=== PATIENT | female | born 1995 | race Two or more races ===

== ENCOUNTER → 2024-01-10 07:56 | Outpatient (REF) | payer OTHER, SELFPAY | LOC: PNTC 07:56 | PROVIDERS: ATTENDING PHYSICIAN Obstetrics & Gynecology | DX: O99.280 Endocrine, nutritional and metabolic diseases complicating pregnancy, unspecified trimester (principal); O99.350 Diseases of the nervous system complicating pregnancy, unspecified trimester | CPT/HCPCS: 76805 ==

== ENCOUNTER 2024-06-04 02:25 | Inpatient (IN) | payer OTHER, SELFPAY ==
[2024-06-04 02:41] VITALS: BP 113/83; BMI 27.5
--- NOTE | 2024-06-04 02:50 | DOWNTIME ---
There was a [employer] Client Technical Professional Downtime on 06/04/2024 from 0100 to 06/04/2023 at 0235 . Downtime documentation of patient's care, including medication administrations, has been reconciled in the electronic record per guidelines. Refer to the
patient's paper chart under the miscellaneous tab to see printed paper medication records and downtime forms.
[2024-06-04] MEDS: LR 1000 IV (03:23)
[2024-06-04 04:15] LABS: % Basophils 0.3 % (0-2); % Lymphocytes 16.9 % (20.5-51.1); % Monocytes 7.2 % (1.7-9.3); % Neutrophils 73.6 % (42.2-75.2); Absolute Eosinophils 0.1 10^3/uL (0-0.7); Absolute Immature Granulocytes 0.1 10^3/uL (0-0.05); Absolute Lymphocytes 1.9 10^3/uL (1.2-3.4); Absolute Monocytes 0.8 10^3/uL (0.1-0.6); Absolute Neutrophils 8.5 10^3/uL (1.4-6.5); Hematocrit 38.1 % (37.0-47.0); Hemoglobin 13.6 g/dL (12.0-16.0); Mean Corp Hgb Conc. 35.7 g/dL (33.0-37.0); Mean Corpuscular Hgb 31.9 pg (27.0-31.0); Mean Corpuscular Volume 89.4 fL (81.0-99.0); Mean Platelet Volume 10.7 fL (7.4-10.4); Nucleated Red Blood Cells % 0 %; Platelet Count 178 10^3/uL (130-400); Red Blood Cell Count 4.26 10^6/uL (4.20-5.40); Red Cell Dist. Width 12.3 % (11.5-14.5); White Blood Cell Count 11.5 10^3/uL (4.8-10.8)
[2024-06-04] MEDS: XYLOCAINE-MPF 1% VIAL 30 ML INFIL (05:12)
[2024-06-04] MEDS: PITOCIN 30 UNITS/NSS 500 ML IV (05:12)
[2024-06-04] MEDS: MOTRIN 600 MG PO (07:21)
[2024-06-04] MEDS: TYLENOL 650 MG PO (18:21)
[2024-06-04] MEDS: FEOSOL PO (18:22)
[2024-06-04] MEDS: SENOKOT-S 1 TABLET PO (20:35)
[2024-06-04] MEDS: PRENATAL PLUS 1 TABLET PO (20:35)
[2024-06-04] MEDS: FEOSOL 325 MG PO (20:35)
[2024-06-05] MEDS: TYLENOL 650 MG PO ×3 (00:31→16:31)
[2024-06-05 06:39] LABS: Hematocrit 32.3 % (37.0-47.0); Hemoglobin 11.3 g/dL (12.0-16.0)
[2024-06-05] MEDS: FEOSOL PO ×3 (08:20→20:13)
[2024-06-05] MEDS: PRENATAL PLUS 1 TABLET PO (20:13)
[2024-06-05] MEDS: SENOKOT-S 1 TABLET PO (20:13)
[2024-06-06] MEDS: TYLENOL 650 MG PO ×2 (02:15→07:34)
[2024-06-06] MEDS: FEOSOL 325 MG PO (07:35)
[2024-06-06 13:48] LABS: Syphilis/T. pallidum Ab Reflex Negative (Negative)
== END 2024-06-06 15:13 | disposition home or self-care (01) | DRG 806 ==
LOC: LDRP 02:25
PROVIDERS: ADMITTING PHYSICIAN Student in an Organized Health Care Education/Training Program
PROC: 0KQM0ZZ Repair Perineum Muscle, Open Approach (ICD-10-PCS; 2024-06-04)
PROC: 4A1HXCZ Monitoring of Products of Conception, Cardiac Rate, External Approach (ICD-10-PCS; 2024-06-04)
PROC: 10E0XZZ Delivery of Products of Conception, External Approach (ICD-10-PCS; 2024-06-04)
DX: O42.02 Full-term premature rupture of membranes, onset of labor within 24 hours of rupture (principal); O99.354 Diseases of the nervous system complicating childbirth; Z37.0 Single live birth; G35 Multiple sclerosis; O99.284 Endocrine, nutritional and metabolic diseases complicating childbirth; E05.90 Thyrotoxicosis, unspecified without thyrotoxic crisis or storm; O69.2XX0 Labor and delivery complicated by other cord entanglement, with compression, not applicable or unspecified; Z3A.37 37 weeks gestation of pregnancy; O70.1 Second degree perineal laceration during delivery; O43.193 Other malformation of placenta, third trimester; Z86.19 Personal history of other infectious and parasitic diseases; Z83.49 Family history of other endocrine, nutritional and metabolic diseases
CPT/HCPCS: 85014; 85018; 85025; 86780; 86850; 86900; 86901

== ENCOUNTER 2024-11-04 10:48 | Emergency (ER) | payer OTHER, SELFPAY ==
[2024-11-04 10:51] VITALS: BP 117/81
--- NOTE | 2024-11-04 12:04 | ED.GENMED ---
History of Present Illness
General
Chief Complaint: Weakness
Source: patient
Time Seen by Provider: 11/04/24 11:42
History of Present Illness
History of Present Illness:
This patient is a 29-year-old female with a history of hyperthyroidism and MS, not currently taking medications given that she is breast-feeding her 6-month-old baby. She states for the last week or so she has had a variety of different symptoms
including lightheadedness, feeling like her head is a little heavy, episodes where her legs feel like they are giving out, and palpitation/dyspnea with certain activities. She denies chest pain, pain, neck pain, double vision, abdominal pain,
vomiting, fever, chills, numbness, tingling, focal weakness, or other complaints. She states her symptoms feel very consistent with prior episodes of an MS relapse associated with hyperthyroidism.
Past History
Past History
ED Past Medical History: Other (Multiple sclerosis, hypothyroidism)
ED Past Surgical History: Tonsilectomy
Social History
Tobacco: Non-smoker
Alcohol: None
Drug: None
Living: with family
Employment: Employed
Family History
Family History: Other (reviewed and non-contributory)
Phy Exam
Physical Exam
Physical Exam:
GENERAL: Alert , in no apparent distress
EYE: pupils equal and reactive
NECK: Supple, no significant adenopathy.
ENT: o/p clr, mmm.
CARDIAC: Regular rate and rhythm .
LUNGS: Clear breath sounds bilaterally, no acute respiratory distress, no wheezes/rales/rhonchi
ABDOMEN: Soft, without focal tenderness, no r/g, no cvat
NEUROLOGICAL: Alert and oriented, no focal neuro deficits, motor 5 out of 5, [id number] normal, cranial nerves II through XII intact, intact to light touch
SKIN: Warm and dry, skin intact.
MUSCULOSKELETAL: No edema, well perfused.
PSYCH: Normal and appropriate interaction.
Course
Orders/Labs/Results
Orders:
Orders
11/04/24 12:11
Electrocardiogram (*1) Urgent
Reason for Study: Palpitations
EKG- Treatment ONCE
11/04/24 12:12
Test Result ONCE
11/04/24 12:26
Complete Blood Count/No Diff Urgent
Comprehensive Metabolic Panel Urgent
HCG, Serum Qualitative Screen Urgent
TSH Reflex To Free T4 Urgent
Abnormal Lab Results
11/04/24
12:26
Hct 36.6 L %
(37.0-47.0)
Total Bilirubin 1.8 H mg/dl
(0.2-1.3)
Alkaline Phosphatase 31 L U/L
(38-126)
11/04/24 12:26
11/04/24 12:26
Vital Signs
Initial and Last Documented VS:
Initial Vital Signs
Temp Pulse Resp BP Pulse Ox
97.7 F 69 18 117/81 100
11/04/24 10:51 11/04/24 10:51 11/04/24 10:51 11/04/24 10:51 11/04/24 10:51
Last Documented Vital Signs
Temp Pulse Resp BP Pulse Ox
97.7 F 69 18 117/81 100
11/04/24 10:51 11/04/24 10:51 11/04/24 10:51 11/04/24 10:51 11/04/24 12:08
*Pulse Oximetry
SaO2: 100
Oxygen Mode of Delivery: Room air
Patient hypoxic: no
*Critical Care Note
Total Time (30-74mins, 75-104mins- exclusive of procedures): Not Applicable
Update Note
Update Note:
Patient presents to the Emergency Department with ___multiple
Number and Complexity of Problems Addressed at the Encounter
� Chronic conditions affecting care:
� Acute Exacerbation and/or Progression of Chronic Illness:
� Differential Diagnosis includes: But not limited to electrolyte disorder, arrhythmia, MS flare, thyroid imbalance, etc. etc.
Amount and/or Complexity of Data to be Reviewed and Analyzed
� I performed an independent evaluation of and my interpretation is:
EKG:read by me, nsr nl rate no ischemia
CT:
Xrays:
Laboratory Studies:generally unremkarable
Other:
� Review of other/old records reveals: Discharge summary from admission April 2022 reviewed, patient had very similar complaints/findings, was started on meds for hyperthyroidism as well as MS.
� Clinical information was obtained by an independent historian:
� Prescriptions/Medications Considered but not given:
� Further testing considered but not performed:
Risk of Complications and/or Morbidity or Mortality of Patient Management
� Social determinants of health affecting care:
� Discussion with other providers (PCP, Hospitalists, Consultants, etc):
� Escalation of care including admission/observation vs risk of discharge considered: Patient seen by neurology here, feel comfortable with recommending discharge for patient with follow-up with him and to resume MS medications.
He also recommends that patient increase caloric intake. Discussed with patient importance of follow-up and reasons to return to the ER. Patient has a normal neurological exam here including normal gait.
ED Attending Note
-
Portions of this chart may have been created with voice recognition software.� Occasional wrong word or��sound alike� substitutions may have occurred due to the inherent limitations of voice recognition software.
Discharge Plan
Departure
Patient Disposition: Home (Routine Discharge)
Date of Disposition: 11/04/24
Time of Disposition: 15:12
Patient with high blood pressure during this ER visit?: Yes
Condition: Good
Discharge Problem:
Weakness
Instructions: Generalized Weakness (DC), BLOOD PRESSURE
Prescriptions:
No Action
Vitamin
1 tab PO DAILY
iron
325 mg PO BID
ibuprofen 600 mg Tablet
600 mg PO Q6HPRN PRN (Reason: moderate pain/cramps) Qty: 90 0RF
Referrals:
NONE,* [Family Provider, Internal Medicine]
Activity Restrictions/Additional Instructions:
PLEASE TAKE YOUR MS MEDICATION DIRECTED BY THE NEUROLOGIST TODAY. IF YOU DEVELOP PERSISTENT DIZZINESS, FEVER, VOMITING, CHEST PAIN, SHORTNESS OF BREATH, CHANGE IN VISION, CHANGE IN SPEECH, OR OTHER WORRISOME SIGNS, PLEASE RETURN TO THE ER
IMMEDIATELY!
Interventions
Interventions:
*Risk Screen - Suicide Last Done: 11/04/24 10:51
*General Assessment Last Done: 11/04/24 10:51
*Neglect/Abuse Screening Last Done: 11/04/24 10:51
*Nursing Disposition Last Done: 11/04/24 16:34
ED- Cardiac Assessment Last Done: 11/04/24 11:45
ED- Neurological Assessment Last Done: 11/04/24 11:45
ED- Pulmonary Assessment Last Done: 11/04/24 11:45
Discharge Date and Time
Discharge Date/Time: 11/04/24 16:35
Print Language: ANDORRAN
[2024-11-04 12:34] LABS: Hematocrit 36.6 % (37.0-47.0); Hemoglobin 12.7 g/dL (12.0-16.0); Mean Corp Hgb Conc. 34.7 g/dL (33.0-37.0); Mean Corpuscular Volume 86.7 fL (81.0-99.0); Platelet Count 242 10^3/uL (130-400); Red Cell Dist. Width 11.8 % (11.5-14.5)
[2024-11-04 12:48] LABS: HCG, Serum Qualitative Screen Negative
[2024-11-04 12:54] LABS: ALT (SGPT) 13 U/L (0-35); AST (SGOT) 16 U/L (14-36); Albumin 4.7 g/dl (3.5-5.0); Alkaline Phosphatase 31 U/L (38-126); Blood Urea Nitrogen 16 mg/dl (7-17); Calcium 9.2 mg/dl (8.4-10.2); Carbon Dioxide 24 mmol/L (22-30); Chloride 107 mmol/L (98-107); Glucose 90 mg/dl (70-99); Potassium 4.4 mmol/L (3.5-5.1); Sodium 137 mmol/L (135-145); Total Protein 7.1 g/dl (6.3-8.2); eGFR > 60.00
--- NOTE | 2024-11-04 13:24 | CON.NEURO ---
Addendum entered and electronically signed by Yeison Abernathy MD 11/04/24 16:17:
Studies reviewed.
I have personally examined the patient. I reviewed and agree with the STEAM BLOCKER's Note.
My addenda:
Awake, alert, interactive. No acute distress.
Speech intact.
Follows 2-step requests w/o difficulty. No tremor.
Extra-ocular movements grossly intact.
Facial movements full and symmetric. Hearing intact to normal conversational volume.
Normal UE movements bilaterally.
Neck: full ROM.
Chest: no dyspnea
Heart: no JVD
Ext: (-) Clubbing, (-) Cyanosis, (-) Edema
IMPRESSIONS/RECOMMENDATIONS:
Abrupt onset of bilateral lower extremity weakness which is not evident on examination currently. Patient has a longstanding history of multiple sclerosis as well as optic neuritis. Currently there are no objective findings.
Patient was again advised to initiate glatiramer acetate as she continues breast-feeding for approximately another 12 months. She has been unwilling to do so previously
Patient was also advised to increase water intake and food intake as these have been an issue previously and may be associated with current symptoms
Patient was advised to undergo repeated outpatient MRI imaging to compare with prior imaging to ensure there is not enhancing lesions producing worsening symptoms
D/W patient
All questions answered.
Will continue to follow as outpatient.
Original Note:
Neuro Assessment/Plan
Assessment
29-year-old female with a history of hyperthyroidism and MS, not currently on disease modifying therapy presented to [facility] on 11/04/2024 with bilateral lower extremity weakness and blurry vision.
Brain MRI 04/26/2023: Moderate white matter disease in keeping with demyelination in the setting of multiple sclerosis. No significant interval change. No abnormal enhancement on postcontrast imaging. Mild diffuse volume loss.
Cervical MRI 04/26/2023:
1. There is slight increase in degenerative disk and joint disease with right central disk protrusion at C5-6 however no cord compression. Mild right foraminal narrowing.
2. Multiple foci of subtle increased T2 signal intensity throughout the cord consistent with the reported history of multiple sclerosis. Comparison of the 2 studies is difficult for any significant interval change.
3. There is no abnormal enhancement on postcontrast imaging within the cord to suggest an acute process or active demyelination.
Lumbar MRI 04/27/2023: Slight increase in degenerative disk and joint disease in the lumbar spine, with spur disk at L4-5 abutting the exiting L4 nerve roots in the far lateral exit foramen. No clear nerve root impingement.
The abnormal increased T2 signal intensity seen in the conus medullaris on prior exams is less well seen on today's exam. No abnormal enhancement on postcontrast imaging. In the past this has been felt to represent demyelinating disease in the conus
medullaris.
No new area of the abnormal signal intensity within the distal visualized thoracic cord.
No new area of abnormal enhancement on postcontrast imaging.
Incidental note is made of a trace amount of free fluid in the pelvis likely related to previous ovarian cyst rupture. There are small follicles in each ovary, incompletely imaged on this exam.
Thoracic MRI 04/30/2023: SEVERE MULTIFOCAL DEMYELINATING DISEASE (MULTIPLE SCLEROSIS) throughout the cervical and thoracic spinal cord without definitive interval change from 05/02/2021.
Plan
Impression: abrupt onset of lower extremity weakness, blurry vision and dizziness with a history of multiple sclerosis not on disease modifying therapy
-encourage food and fluid intake
-obtain brain and spine MRIs outpatient as planned
-consider starting Copaxone (glatiramer acetate)�while breast feeding
All questions encouraged and answered, plan of care discussed with Dr. Abernathy, hospitalist, nurse and patient
Consultation
Order
Date of Consultation: 11/04/24
Requesting Provider: hospitalist
Reason for Consult: lower extremity weakness
Subjective/Objective
Subjective Data
Date of Service: November 04, 2024
Was seen in the office on 10/30/2024 by myself and at that time no signs of MS exacerbation. Complaints of dizziness which is not new. Currently not on disease modifying therapy. Discussed starting Copaxone since she is breast feeding but would like
to hold off. Shortly after being seen outpatient, she started to have blurry vision and bilateral lower extremity weakness which prompted her to come to ER for evaluation. On exam muscle strength full throughout. Denies diplopia, denies issues with
chewing or swallowing. Denies issues with bowel/bladder. Denies numbness or tingling. Denies weakness in upper extremities.
Adapted from neurology note by Dr. Abernathy on April 2022:
'Due to progressive multiple sclerosis, the patient had replacement of monomethyl fumarate with the use of Ofatumumab. She received the fourth dose last week of Ofatumumab. Other than injection site reactions, the patient was not experiencing any
significant issues with this injectable medication for control over multiple sclerosis.
Fatigue began to worsen 14 days ago. Dizziness began to worsen with worsening balance with worsening walking without falling. 10 minute increments of dizziness twice an hour. Joint pain started 10 days ago in knees bilaterally only with walking,
equal bilaterally.
Tremors in bilateral hands returned two days ago.
Headaches increased two days ago.
Edited from my prior outpatient notes:
MRIs of brain: 02/2021, shows atrophy, without advancement of MS-type plaques from prior study 06/2020
MRIs of spine: Cervical spine 02/2021, diffuse lesions, without advancement of MS-type plaques from prior study 06/2020
Thoracic spine 06/2020, Lesions throughout thoracic spine except for T1, 3, 7, without advancement of MS-type plaques from prior study
Lumbar spine 04/2019, without advancement of MS-type plaques from prior study; 03/2021 continued conus medullaris lesion
[employer] Cognitive Testin% in 2015, 93% in 01/2017, 78% in 08/2020, 79% in 06/2021
Since last visit:
02/2022
Sugar and carbohydrates leads to fatigue
Thyroid abnl, hyperthyroid
Falling twice
Dizziness before falling
Considering changing medication for MS
Now engaged
08/2021
Worsening depression, meeting with rn social work
Urinary leakage weekly, unexpectedly, with some urgently
Improved cognition, still difficulty
No tremors, no constipation
Intensity: significant
Prior medication(s): Glatiramer acetate, beta-interferon 1-A (Avonex), fingolimod, dimethyl fumarate, Monomethyl fumarate (since 2020)
Prior meds for sxs: Tizanidine, Baclofen, Gabapentin, Tizanidine, NSAIDs, Levetiracetam, ASA (with Tecfidera), Modafinil (07/2020)
Side-effects with medications: Glatiramer acetate leading to tremors; loose stools; Tizanidine; ? tremors following fingolimod, dimethyl fumarate
Previous testing: [employer] cognitive testing, blood work, JAN
Previous treatment(s): PT
Prior evaluation: [facility], Neuro-Ophth at [facility], [facility] Neurology, Urology
Frequency: for eye pain, resolved; tremor is episodic --> daily for organizational issues
Duration: chronic (12/2014)
Duration of symptom: intermittent for tremor -->all day for hand numbness, resolved hand tremors
Etiology: unclear, presumed due to relapsing-remitting MS
MS type: Relapsing-Remitting
Associated symptom(s): fatigue, leg sensation loss on left lower extremity knee down; right leg loss of sensation (11/2020), concentration decline
Previous associated symptoms: visual change, blurred vision, bladder dysfxn, eye pain, tremor
Unchanged by: unclear to patient
Worsening factors: unclear to patient
Improving factors: Tizanidine with Gabapentin
risk: reviewed in past 1 year
Severity: significant
~~~~
Pattern:
Began (prior to initial evaluation in this office):
new onset of visual change
started Baclofen after rx by [facility] (subspecialist, Noah); was told by [facility] that dx= MS; worsening tremor, worsening fatigue, spread of tremor to R hand; CP w/ eating; tremors in body decreased; hand shaking worse; worsening gait; reduced brain
cognition; worse LLE strength
started Gabapentin; worsening cognitive fxn; variable ability to ambulate; LLE skin sensation loss
last hospitalization- 06/2015
Dr. Zamora ([facility]) for second opinion-thought about Extavia vs Avonex-Avonex covered by insurance, increased loss of control of legs-3-4 times a week
occasional loss of bladder control
continued blurred vision~10 minutes
>> blurred vision daily, intermittently centrally x 2 days lasting ~ 5 hours (OD)
continue SE w/ Avonex x 24 hours (flu-like even w/ Acetaminophen dosing)
abnl walking started 2 days ago
This is in unscheduled visit:
continued constipation, seeing GI in ~ 3 weeks
attempted to increase Gabapentin but developed SE
performing PT
>> met w/ [facility]
started then \\'ran out\\' of Elavil, started Gilenya 10/2016
wants to stop GBN due to constipation
worsening energy levels
legs feel weak
continued constipation
[facility] Rx'ed Keppra for tremors
>> poor grades in school currently
no new changes in eye by ophth.
memory and fatigue worsening
>> dizziness, frequently
worsening fatigue; continued tremors
[facility] stopped Levetiracetam
continued grade meagerness
>> improved tremor then worsening
cognitive improvement
>> improved molluscum (around groin) although continues despite change of medication 2 weeks ago
Tecfidera x 2 weeks after discontinuance of Gilenya (had stopped for 4 weeks)
had episode of visual change two weeks ago (while between medications x 3 days)
taking Tecfidera w/ ASA
>> new doc at [facility]
told to stop Gabapentin
continues to meet w/ Dermatology
met w/ Ophtho.
no change since last visit w/ eye pain
>> Headaches daily 1.5 months ago
Fatigue is 'painful' 1 month ago
Dizziness upon awakening 1 month ago all day like blood rushing out of head 4-5x/ day
Rash 'on my face' w/ treatment with lotion 1 month ago
constant sense of 'cold' in entire body like 'I have a fever' starting 1 week ago
completed visual field testing
fell down steps 'last week' 2-3 steps 1 week ago
'can I have the mumps vaccine?'
new MRIs planned
>> variable heart rates started 2 months ago 1-2x/ week, duration of 1 minute
prolonged time since last recommended visit
stopped tremor
>> increasing fatigue and weight loss
Dizziness 2-3x/ week, lasting few seconds, not risk of falling
>> tremors returned in past several days
poor sleep quality
flushing on face, daily, duration is 60 minutes
>> 06/2020
'My left side sensation is worse' since 3 weeks L hand > LLE
Daily rash lasting all day long
Plan for new MRIs of spine
New MRI of brain no change
Stopped Gabapentin
Not easy to move left left-side
Has followed with GI regarding constipation
Has shortness of breath 2-3x/ week
>> 09/2020
left-sided weakness, unable to walk more than 30 minutes due to numbness
no appetite, met with leacher
completed [employer] cognitive testing
fatigue and cognitive issues worsening
energy levels drop at 14:00 daily, complete lack of energy at 19:00
started Modafinil without significant improvement
>> 12/2020
completed new blood work
no appetite
loss of sensation on right leg since 11/2020, 2x/month
current headache (this week started, sharp, no meds attempted, daily, duration 5 minutes)
>> 03/2021
Was hospitalized for left-hand numbness which is persistent, non-disabling, is also having ongoing left hand apraxia in form of tying knots
increasing urinary incontinence worsening 1 week ago
didn't obtain cognitive behavior therapy
for tremor frequency is daily since 02/2021
for urinary incontinence daily
>> 06/2021
patient having a decline in work due to cognitive issues, routinely, in past 3 months (since 04/2021)
not using Modafinil routinely
vision normal again after high-dose PO steroids
having organizational issues
Plan for MRI of orbits upcoming'
Objective Data
Vital Signs
Temp Pulse Resp BP Pulse Ox
97.7 F 69 18 117/81 100
11/04/24 10:51 11/04/24 10:51 11/04/24 10:51 11/04/24 10:51 11/04/24 12:08
Lab Results
11/04/24 12:26
11/04/24 12:26
Sodium 137 mmol/L (135-145) 11/04/24 12:26
Potassium 4.4 mmol/L (3.5-5.1) 11/04/24 12:26
BUN 16 mg/dl (7-17) 11/04/24 12:26
Glucose 90 mg/dl (70-99) 11/04/24 12:26
Calcium 9.2 mg/dl (8.4-10.2) 11/04/24 12:26
Patient Allergies
aloe vera Allergy (Verified 11/04/24 10:54)
Rash
Review of Systems
-
History Source: Patient
Constitutional: Weakness
EENT: Blurry Vision
Respiratory: No Symptoms
Cardiac: No Symptoms
Abdomen/GI: No Symptoms
Genitourinary: No Symptoms
Musculoskeletal: No Symptoms
Skin: No Symptoms
Neuro: Weakness (lower extremity)
Physical Exam
-
General: No Apparent Distress and Appears Stated Age
Eyes: OU Absent Papilledema, Round OU, [place] Conjunctivae and No Ptosis
HEENT: Anicteric and Moist Mucous Membranes
Neck: Full Range of Motion
Respiratory: No Dyspnea
Cardiac: No JVD
GI: Non-distended
Skin: Unremarkable
Extremities: No Clubbing, No Cyanosis and No Edema
Psych: Intact Judgement/Insight
Extended Neurological Exam
Mood & Affect: Mood Unremarkable and Affect Unremarkable
Attention Span & Concentration: Awake, Alert, Interactive and No Difficulty with 2 Step Request
Memory: Unremarkable
Tremor: Hand Tremor Absent and Head Tremor Absent
Speech: Quality Unremarkable and Quantity Unremarkable
Cranial Nerve II: Left Eye: Pupillary Reactivity Unremarkable, Pupillary Size Unremarkable and Visual Arias Intact
Cranial Nerve II: Right Eye: Pupillary Reactivity Unremarkable, Pupillary Size Unremarkable and Visual Arias Intact
Cranial Nerves III, IV, : Extraocular Movement: Extraocular Movement Full in all Directions
Cranial Nerve V: Facial Sensation: Facial Sensation Unremarkable to Cold
Cranial Nerve VII: Facial Symmetry: Normal Facial Symmetry
Cranial Nerve VIII: Hearing: Unremarkable Hearing to Normal Conversational Volume
Cranial Nerves IX, X: Palate Movement: Palate Elevation Symmetric
Cranial Nerve XI: Shoulder Shrug: Unremarkable
Cranial Nerve XII: Tongue Protusion: Midline
Muscle Strength, Overall: Full Throughout
Muscle Bulk & Tone: Bulk Unremarkable and Tone Unremarkable
Pronator Drift: No Drift in Upper Extremities
Deep Tendon Reflexes: Unremarkable Throughout
Cold Sensation: Unremarkable
Vibration Sensation: Unremarkable
Touch Sensation: Unremarkable
Coordination: [id number] Testing Unremarkable
Babinski Sign: Absent Bilaterally
Data Reviewed
-
MRI Head: Report Reviewed and Image Reviewed
MRI Cervical Spine: Report Reviewed and Image Reviewed
MRI Thoracic Spine: Report Reviewed and Image Reviewed
MRI Lumbar Spine: Report Reviewed and Image Reviewed
Labs: Report Reviewed
Reviewed with: Physician, Nurse and Patient
Old Records: Summarized
Medications
-
Home Medications
�Medication �Instructions �Recorded
Vitamin 1 tab PO DAILY 06/04/24
iron 325 mg PO BID 06/04/24
ibuprofen 600 mg tablet 600 mg PO Q6HPRN PRN moderate 06/06/24
pain/cramps #90 tabs
Past History
Past History
ED Past Medical History: Other (Multiple sclerosis, hypothyroidism)
ED Past Surgical History: Tonsilectomy
Family/Social History
Tobacco: Non-smoker
Alcohol: None
Drug: None
Personal: Single
Living: with family
Employment: Employed
Family History: Other (reviewed and non-contributory)
== END 2024-11-04 16:35 | disposition home or self-care (01) ==
LOC: EMR 10:48
PROVIDERS: EMERGENCY PHYSICIAN Emergency Medicine
DX: R53.1 Weakness (principal); G35 Multiple sclerosis; E03.9 Hypothyroidism, unspecified
CPT/HCPCS: 99283; 80053; 84443; 84703; 85027; 93005

== ENCOUNTER → 2025-03-06 17:40 | Outpatient (REF) | payer OTHER, SELFPAY | LOC: MRI 17:40 | PROVIDERS: ATTENDING PHYSICIAN Nurse Practitioner | DX: G35.D Multiple sclerosis, unspecified (principal) | CPT/HCPCS: 70553; 72156; A9575 ==

== ENCOUNTER → 2025-03-10 18:46 | Outpatient (REF) | payer OTHER, SELFPAY | LOC: MRI 18:46 | PROVIDERS: ATTENDING PHYSICIAN Nurse Practitioner | DX: G35.D Multiple sclerosis, unspecified (principal) | CPT/HCPCS: 72158; A9575 ==

== ENCOUNTER → 2025-03-25 14:18 | Outpatient (REF) | payer OTHER, SELFPAY | LOC: PAVMRI 14:18 | PROVIDERS: ATTENDING PHYSICIAN Nurse Practitioner | DX: G35.D Multiple sclerosis, unspecified (principal) | CPT/HCPCS: 72157; A9575 ==

== ENCOUNTER → 2025-04-01 19:40 | Outpatient (REF) | payer OTHER, SELFPAY | LOC: MRI 19:40 | PROVIDERS: ATTENDING PHYSICIAN Ophthalmology Neuro-ophthalmology | DX: H46.8 Other optic neuritis (principal) | CPT/HCPCS: 70543; 70553; A9575 ==